=== PATIENT | male | born 1995 | race Caucasian/White ===

== ENCOUNTER 2020-04-30 12:03 | Emergency (ER) | payer OTHER ==
[~2020-04-30] VITALS: Ht 175.3 cm; Wt 88.0 kg
[2020-04-30 12:22] VITALS: BP 135/81
[2020-04-30] MEDS ORDERED: Bacitracin Oint UD TOPIC ONE (13:30)
[2020-04-30] MEDS ORDERED: Augmentin 875mg Tab ORAL ONE (14:00)
--- NOTE | 2020-04-30 14:04 | Diagnostic Imaging Report ---
Indication: Hand pain Technique: 3 views of the right hand Comparison: None FINDINGS/IMPRESSION: Bony mineralization within normal limits. No acute fracture or dislocatio. Chronic appearing irregularity of the base of the fifth distal phalanx which may be related to chronic injury and secondary degenerative change. Soft tissue irregularity of the distal fifth digit. Correlate with physical exam. No radiopaque foreign body.
[2020-04-30] MEDS ORDERED: BACITRACIN15 GM TOPIC (14:16)
[2020-04-30] MEDS ORDERED: AUGMENTIN 875-1 EAC1 ORAL (14:16)
--- NOTE | 2020-04-30 14:16 | Emergency Room Report ---
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 Barajas Is my supervising Physician whom patient management has been discussed with. Diagnostic Impression: Primary Impression: Avulsion of skin of finger Qualified Codes: S61.209A - Unspecified open wound of unspecified finger without damage to nail, initial encounter Additional Impressions: Multiple contusions Sprain of finger, right Qualified Codes: S63.634A - Sprain of interphalangeal joint of right ring finger, initial encounter ER Course Pt. presents to the ED c/o [ ] Ddx considered but are not limited to Fracture, dislocation, contusion, Sprain/Strain/Spasm, fight bite Vital signs: are WNL, pt. is afebrile H&PE are most consistent with musculoskeletal injury will perform imaging to r/o fractures/dislocations. ORDERS: - X-ray Right fingers/hand - negative for fx, Dislocation, or significant soft tissue injury, per preliminary read in ED, and signed by CHRISTA Bryant, my supervising physician has reviewed, and agrees with my interpretation. ED INTERVENTIONS: - [ ] DISCHARGE: At this time pt. is stable for d/c to home. Will provide printed patient care instructions, and any necessary prescriptions. Care plan and follow up instructions have been discussed with the patient prior to discharge. Last Vital Signs Date Time Temp Pulse Resp B/P (MAP) Pulse Ox O2 Delivery O2 Flow Rate FiO2 04/30/20 12:22 98.1 20 135/81 94 Room Air 04/30/20 12:10 84 Disposition: HOME, SELF-CARE Condition: Stable Referrals: NON PHYSICIAN (PCP) Patient Instructions: Contusion, [id number]-vl-[id number], Deep Skin Avulsion Additional Instructions: Take medications as directed. FINISH ALL ANTIBIOTICS Follow up with a Primary Care Provider in 3-5 days, even if your symptoms have resolved. --Please review list of primary care clinics, if you do not already have a primary care provider Return sooner to ED if new symptoms occur, or current symptoms become worse. - Please note that this Emergency Department Report was dictated using [employer] shaping machine operator technology software, occasionally this can lead to erroneous entry secondary to interpretation by the dictation equipment. Leigh Bryant Apr 30, 2020 14:16
[2020-04-30 14:25] VITALS: BP 134/80
== END 2020-04-30 14:25 | disposition home or self-care (01) ==
LOC: EMR 12:40
DX: S61.209A Unspecified open wound of unspecified finger without damage to nail, initial encounter (principal); S63.634A Sprain of interphalangeal joint of right ring finger, initial encounter; X58.XXXA Exposure to other specified factors, initial encounter; Y92.9 Unspecified place or not applicable
CPT/HCPCS: 73130; Z7502; 99283